=== PATIENT | female | born 1965 | race Caucasian/White ===

== ENCOUNTER 2019-04-13 19:03 | Emergency (ER) | payer BC, OTHER ==
--- NOTE | 2019-04-13 20:12 | EDPHYS ---
Physician Documentation [facility] Name: Kavita Abad Age: 54 yrs Sex: Female : 1965 Arrival Date: 04/13/2019 Time: 19:07 Bed 9 Private MD: ED Physician Kvng Saunders HPI: 04/13 20:05 This 54 yrs old Female presents to ER via Ambulatory with complaints of Eye gs Problem. 20:05 The patient is experiencing redness, The patient sustained an abrasion, to the right gs eye. Onset: The symptoms/episode began/occurred yesterday. Duration: the symptoms are continuous. Aggravated by blinking. Associated signs and symptoms: Pertinent negatives: dizziness, fever. Severity of symptoms: At their worst the symptoms were moderate in the emergency department the symptoms are unchanged. The patient has not experienced similar symptoms in the past. cat scratched side of right eye, no drainage. 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 - Social history:: Smoking status: Patient/guardian denies using tobacco. - Ebola Screening: : Patient negative for fever greater than or equal to 101.5 degrees Fahrenheit, and additional compatible Ebola Virus Disease symptoms Patient denies exposure to infectious person Patient denies travel to an Ebola-affected area in the 21 days before illness onset No symptoms or risks identified at this time. ROS: 20:05 All other systems are negative. gs Exam: 20:05 Head/Face: Normocephalic, atraumatic. ENT: Nares patent. No nasal discharge, no gs septal abnormalities noted. Tympanic membranes are normal and external auditory canals are clear. Oropharynx with no redness, swelling, or masses, exudates, or evidence of obstruction, uvula midline. Mucous membranes moist. Cardiovascular: Regular rate and rhythm with a normal S1 and S2. No gallops, murmurs, or rubs. Normal PMI, no JVD. No pulse deficits. Respiratory: Lungs have equal breath sounds bilaterally, clear to auscultation and percussion. No rales, rhonchi or wheezes noted. No increased work of breathing, no retractions or nasal flaring. 20:05 Eyes: Periorbital structures: appear normal, Pupils: no acute changes, Extraocular movements: no acute changes, Corneas: are normal, Sclera: abrasion, of the lateral aspect of conjunctiva of right eye Vital Signs: 19:09 BP 135 / 77; Pulse 64; Resp 18; Temp 97.6; Pulse Ox 99% on R/A; Weight 68.04 kg; Height ed1 5 ft. 5 in. (165.10 cm); Pain 0/10; 20:16 BP 128 / 71; Pulse 68; Resp 16; Temp 97.8; Pulse Ox 99% ; rv 19:09 Body Mass Index 24.96 (68.04 kg, 165.10 cm) ed1 MDM: 20:01 Patient medically screened. 20:05 Data reviewed: vital signs, nurses notes. Counseling: I had a detailed discussion with the patient and/or guardian regarding: the historical points, exam findings, and any diagnostic results supporting the discharge/admit diagnosis. Administered Medications: No medications were administered Disposition: 04/13/19 20:12 Discharged to Home. Impression: subconjunctival hemorrhage. - Condition is Stable. - Discharge Instructions: Subconjunctival Hemorrhage. - Prescriptions for Erythromycin 5 mg/gram (0.5 %) Ophthalmic Ointment - apply 1 ribbon by OPHTHALMIC route 2 times per day for 5 days; 1 tube. - Medication Reconciliation Form, Thank You Letter, Antibiotic Education, Prescription Opioid Use form. - Follow up: Dom Longo MD; When: 2 - 3 days; Reason: Re-evaluation by your physician. Signatures: Myra Herrera RN RN ed1 Kvng Saunders MD MD Cesar Cervantes RN RN rv Corrections: (The following items were deleted from the chart) 20:17 20:12 04/13/2019 20:12 Discharged to Home. Impression: subconjunctival hemorrhage. rv Condition is Stable. Forms are Medication Reconciliation Form, Thank You Letter, Antibiotic Education, Prescription Opioid Use. Follow up: Dom Donta; When: 2 - 3 days; Reason: Re-evaluation by your physician. gs
--- NOTE | 2019-04-13 20:12 | ER ---
Nurse's Notes [facility] Name: Kavita Abad Age: 54 yrs Sex: Female : 1965 Arrival Date: 04/13/2019 Time: 19:07 Bed 9 Private MD: Diagnosis: subconjunctival hemorrhage Presentation: 04/13 19:07 Presenting complaint: Patient states: I got scratched by a cat yesterday in my eye. ed1 Denies blurred vision. Transition of care: patient was not received from another setting of care. Onset of symptoms was April 12, 2019. Risk Assessment: Do you want to hurt yourself or someone else? Patient reports no desire to harm self or others. Initial Sepsis Screen: Does the patient meet any 2 criteria? No. Patient's initial sepsis screen is negative. Does the patient have a suspected source of infection? No. Patient's initial sepsis screen is negative. Care prior to arrival: eye drops. 19:07 Method Of Arrival: Ambulatory ed1 19:07 Acuity: TIGRE 3 ed1 Triage Assessment: 19:09 General: Appears in no apparent distress. Behavior is calm, cooperative. Pain: ed1 Complains of pain in right eye Pain currently is 0 out of 10 on a pain scale. at worst was 3 out of 10 on a pain scale. EENT: Eyes are tearing on right eye Sclera/Cornea are reddened in right eye. 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 - Social history:: Smoking status: Patient/guardian denies using tobacco. - Ebola Screening: : Patient negative for fever greater than or equal to 101.5 degrees Fahrenheit, and additional compatible Ebola Virus Disease symptoms Patient denies exposure to infectious person Patient denies travel to an Ebola-affected area in the 21 days before illness onset No symptoms or risks identified at this time. Screenin:59 Abuse screen: Denies threats or abuse. Denies injuries from another. Nutritional rv screening: No deficits noted. Tuberculosis screening: No symptoms or risk factors identified. Fall Risk None identified. Assessment: 19:58 General: Appears in no apparent distress. comfortable, Behavior is calm, cooperative. rv Pain: Complains of pain in right eye. Neuro: Level of Consciousness is awake, alert, obeys commands, Oriented to person, place, time, situation. Cardiovascular: Patient's skin is warm and dry. Respiratory: Airway is patent. GI: No signs and/or symptoms were reported involving the gastrointestinal system. : No signs and/or symptoms were reported regarding the genitourinary system. EENT: Eyes small blood clot in the right eye. Derm: Skin is intact. Musculoskeletal: No signs and/or symptoms reported regarding the musculoskeletal system. Vital Signs: 19:09 BP 135 / 77; Pulse 64; Resp 18; Temp 97.6; Pulse Ox 99% on R/A; Weight 68.04 kg; Height ed1 5 ft. 5 in. (165.10 cm); Pain 0/10; 20:16 BP 128 / 71; Pulse 68; Resp 16; Temp 97.8; Pulse Ox 99% ; rv 19:09 Body Mass Index 24.96 (68.04 kg, 165.10 cm) ed1 ED Course: 19:07 Patient arrived in ED. es 19:09 Triage completed. ed1 19:09 Arm band placed on right wrist. ed1 19:23 Cesar Cervantes, TOMAS is Primary Nurse. rv 19:31 Kvng Saunders MD is Attending Physician. gs 19:59 Patient has correct armband on for positive identification. Bed in low position. Call rv light in reach. Side rails up X 1. Adult w/ patient. Pulse ox on. NIBP on. 20:08 Dom Longo MD is Referral Physician. gs 20:16 No provider procedures requiring assistance completed. Patient did not have IV access rv during this emergency room visit. Administered Medications: No medications were administered Outcome: 20:12 Discharge ordered by . gs 20:16 Discharged to home ambulatory. rv 20:16 Condition: good 20:16 Discharge instructions given to patient, Instructed on discharge instructions, follow up and referral plans. medication usage, Demonstrated understanding of instructions, follow-up care, medications, Prescriptions given X 1. 20:17 Patient left the ED. rv Signatures: Karlene Freedman Erika, RN RN ed1 Kvng Saunders MD MD gs Cesar Cervantes RN RN rv
== END 2019-04-13 20:17 | disposition home or self-care (01) ==
LOC: ER 19:03
DX: H11.31 Conjunctival hemorrhage, right eye (principal); E03.9 Hypothyroidism, unspecified
CPT/HCPCS: 99283